=== PATIENT | female | born 1955 | race Asian ===

== ENCOUNTER 2019-10-13 22:56 | Inpatient (IN) | payer BC, MEDICARE ==
[2019-10-13] MEDS ORDERED: ASPIRIN 81 MG TABLET, CHEWABLE PO ONE (23:19)
--- NOTE | 2019-10-13 23:20 | ER Document Report ---
ED Medical Screen (RME) - General Chief Complaint: Chest Pain Stated Complaint: CHEST PAIN/SHORTNESS OF BREATH Time Seen by Provider: 10/13/19 23:16 Primary Care Provider: YIN MENDENHALL [Primary Care Provider] - Follow up as needed Information source: Patient Notes: Patient presents with chest pain for the past week with exertional dyspnea. Patient states she has had some cyanosis to the lips. Exertional activities. Patient reports mild cough. Patient denies any chronic underlying medical problems. I have greeted and performed a rapid initial assessment of this patient. A comprehensive ED assessment and evaluation of the patient, analysis of test results and completion of the medical decision making process will be conducted by additional ED providers. - Related Data Allergies/Adverse Reactions: No Known Allergies Allergy (Unverified 10/13/19 23:15) Physical Exam - Vital signs Vitals: Temp Pulse Resp BP Pulse Ox 97.7 F 93 20 116/93 H 99 10/13/19 23:12 10/13/19 23:12 10/13/19 23:12 10/13/19 23:12 10/13/19 23:12 - Respiratory Respiratory status: No respiratory distress Chest status: Tender Breath sounds: Nonproductive cough - Cardiovascular Rhythm: Regular Heart sounds: S1 appreciated, S2 appreciated Course - Vital Signs Vital signs: Temp Pulse Resp BP Pulse Ox 97.7 F 93 20 116/93 H 99 10/13/19 23:12 10/13/19 23:12 10/13/19 23:12 10/13/19 23:12 10/13/19 23:12 Doctor's Discharge - Discharge Referrals: YIN MENDENHALL [Primary Care Provider] - Follow up as needed
[2019-10-14 00:02] LABS: ABSOLUTE BASOPHILS # (AUTO) 0.1 10^3/uL (0.0-0.2); ABSOLUTE EOSINOPHILS # (AUTO) 0.1 10^3/uL (0.0-0.6); ABSOLUTE LYMPHOCYTES (AUTO) 2.3 10^3/uL (0.5-4.7); ABSOLUTE MONOCYTES (AUTO) 0.8 10^3/uL (0.1-1.4); ABSOLUTE NEUT (AUTO) 5.6 10^3/uL (1.7-8.2); BASOPHILS % (AUTO) 1.1 % (0-2); EOSINOPHILS % (AUTO) 1.1 % (0-6); HEMATOCRIT 38.5 % (36.0-47.0); HEMOGLOBIN 12.9 g/dL (12.0-15.5); LYMPHOCYTES % (AUTO) 26.3 % (13-45); MEAN CORPUSCULAR HGB CONC 33.4 g/dL (32.0-36.0); MEAN CORPUSCULAR VOLUME 93 fl (80-97); MONOCYTES % (AUTO) 8.6 % (3-13); PLATELET COUNT 230 10^3/uL (150-450); RED BLOOD COUNT 4.14 10^6/uL (3.72-5.28); RED CELL DISTRIBUTION WIDTH 13.1 % (11.5-14.0); SEGMENTED NEUTROPHILS % (AUTO) 62.9 % (42-78); TOTAL CELLS COUNTED % (AUTO) 100 %; WHITE BLOOD COUNT 8.8 10^3/uL (4.0-10.5)
[2019-10-14 00:23] LABS: ALKALINE PHOSPHATASE 66 U/L (38-126); ANION GAP 8 (5-19); ASPARTATE AMINO TRANSFERASE 96 U/L (14-36); BILIRUBIN,TOTAL 1.3 mg/dL (0.2-1.3); BLOOD UREA NITROGEN 14 mg/dL (7-20); CALCIUM 9.8 mg/dL (8.4-10.2); CARBON DIOXIDE 27 mmol/L (22-30); CHLORIDE 99 mmol/L (98-107); GLUCOSE 205 mg/dL (75-110); POTASSIUM 4.2 mmol/L (3.6-5.0); TOTAL PROTEIN 7.3 g/dL (6.3-8.2)
--- NOTE | 2019-10-14 00:33 | RADIOLOGY REPORT (SQ) ---
EXAM DESCRIPTION: XR CHEST 2 VIEWS COMPLETED DATE/TME: 10/13/2019 23:19 CLINICAL HISTORY: 64 years Female, cp COMPARISON: None. NUMBER OF VIEWS/TECHNIQUE: 2, PA/Lateral FINDINGS: Moderate opacity-fusion at bilateral lung bases. Moderate lung volume, normal cardiac silhouette, and intact bony thorax. Atherosclerosis. IMPRESSION: Moderate bibasilar pneumonia/atelectasis. [id number] bilateral pleural effusions. Recommend CR/CT surveillance including at 7-12 weeks following initiation of any clinically warranted therapy.
[2019-10-14 00:38] LABS: TROPONIN I 0.091 ng/mL
[2019-10-14] MEDS ORDERED: FUROSEMIDE INJ/PF 40 MG/4 ML SDV IV ONE (02:32)
--- NOTE | 2019-10-14 03:21 | ER Document Report ---
ED General - General Chief Complaint: Shortness Of Breath Stated Complaint: CHEST PAIN/SHORTNESS OF BREATH Time Seen by Provider: 10/13/19 23:16 Primary Care Provider: YIN MENDENHALL [NO LOCAL MD] - Follow up as needed Notes: 64-year-old female presents emergency department complaining of shortness of breath for the past week that worsened today associated with increasing dyspnea on exertion and decreased exercise tolerance. Denies any true chest pain although states that she feels "something" in her chest sometimes when she is walking. Admits to nonproductive cough that is been going on for the past week. Denies any peripheral edema but admits orthopnea that means she has been having to sleep in a recliner for the past week. Does not see a doctor on a regular basis, denies prior medical history. - Related Data Allergies/Adverse Reactions: No Known Allergies Allergy (Unverified 10/13/19 23:15) Past Medical History - General Information source: Patient - Social History Smoking Status: Never Smoker Frequency of alcohol use: None Drug Abuse: None Family History: Hypertension Patient has homicidal ideation: No Past Surgical History: Reports: Hx Tubal Ligation Review of Systems - Review of Systems Constitutional: No symptoms reported EENT: No symptoms reported Cardiovascular: See HPI Respiratory: See HPI Gastrointestinal: No symptoms reported -: Yes All other systems reviewed and negative Physical Exam - Vital signs Vitals: Temp Pulse Resp BP Pulse Ox 97.7 F 93 20 116/93 H 99 10/13/19 23:12 10/13/19 23:12 10/13/19 23:12 10/13/19 23:12 10/13/19 23:12 Interpretation: Normal - Notes Notes: GENERAL: Alert, interacts well. Appears mildly short of breath. HEAD: Normocephalic, atraumatic EYES: Pupils equal, round and reactive to light, extraocular movements intact. ENT: Oral mucosa moist, tongue midline. NECK: Full range of motion, supple, trachea midline. LUNGS: Mildly tachypneic when speaking, inspiratory rales at the bases, no wheezing, no accessory muscle use. HEART: Regular rate and rhythm, no murmurs, gallops, rubs. ABDOMEN: Soft, nontender, nondistended, bowel sounds present in all 4 quadrants. EXTREMITIES: Moves all 4 extremities spontaneously, trace pitting edema, radial and dorsalis pedis pulses 2/4 bilaterally. No cyanosis. NEUROLOGICAL: Alert and oriented x3, normal speech. PSYCH: Normal mood, normal affect. SKIN: Warm, Dry, normal turgor, no rashes or lesions noted. Course - Re-evaluation Re-evalutation: 10/14/19 03:19 CBC unremarkable, CMP shows elevated glucose at 205, low sodium at 133.8, AST and ALT are both moderately elevated, troponin indeterminate 0.091, repeat has been ordered, proBNP elevated at 6280. Chest X-Ray 10/13/19 23:19 IMPRESSION: Moderate bibasilar pneumonia/atelectasis. [id number] bilateral pleural effusions. Recommend CR/CT surveillance including at 7-12 weeks following initiation of any clinically warranted therapy. Chest x-ray though not noted by radiology does appear to show some cephalization to me. No evidence of pneumonia, doubt bibasilar pneumonia, more likely atelectasis. Patient is given aspirin and Lasix. Discussed patient with Dr. Hunt for new onset CHF admission. He will come down and examine the patient and determine final level of care for this patient. 10/14/19 03:27 Patient is actually - Vital Signs Vital signs: Temp Pulse Resp BP Pulse Ox 97.7 F 93 24 H 115/87 H 100 10/13/19 23:12 10/13/19 23:12 10/14/19 03:15 10/14/19 03:15 10/14/19 03:15 - Laboratory Result Diagrams: 10/13/19 23:45 10/13/19 23:45 Laboratory results interpreted by me: 10/13/19 10/13/19 23:45 23:45 Sodium 133.8 L Glucose 205 H AST 96 H ALT 145 H NT-Pro-B Natriuret Pep 6280 H - EKG Interpretation by Me Additional EKG results interpreted by me: 10/14/19 03:20 EKG shows sinus rhythm at a rate of 95, normal axis, interventricular conduction delay, no ST segment elevations, slight ST segment depressions in lead II and V4 through V6, T wave inversions noted in V4 through V6, per my interpretation. Discharge - Discharge Clinical Impression: New onset of congestive heart failure, Hyperglycemia Condition: Fair Disposition: ADMITTED INPATIENT Admitting Provider: Gilbert (Hospitalist) Unit Admitted: Telemetry Referrals: LOCAL,NO [NO LOCAL MD] - Follow up as needed
--- NOTE | 2019-10-14 03:40 | PDOC H&P ---
History of Present Illness Admission Date/PCP: NO LOCALMN History of Present Illness: DANA JACKSON is a 64 year old female with no known prior medical history who presents with shortness of breath. She complains of dyspnea on exertion for 1 week and orthopnea for 2 weeks. She said she has had 2 sleep propped up and she has since moved into sleeping in a chair. She is not had any fevers. She said that she has to take several rest breaks when doing any sort of activity now and she feels like it has gotten worse. She says she feels like her heart starts beating harder and faster whenever she does any kind of activity and it slows back down whenever she rests. She is not a smoker. She does not have a doctor and has not seen a doctor in several years. She does not take any medications at home. She is never had a stress test. She said that her father had hypertension, her mother had coronary artery disease and diabetes, and her brother has diabetes, and 1 of her children has hypertension. She was not hypoxic but she felt like she was breathing a little bit easier with the oxygen on. Her chest x-ray showed small bilateral pleural effusions, bibasilar opacities, and some pulmonary vascular congestion on my read. Past Surgical History Past Surgical History: Reports: Tubal Ligation Social History Smoking Status: Never Smoker Family History Family History: CAD, DM, Hypertension Parental Family History Reviewed: Yes Children Family History Reviewed: Yes Sibling(s) Family History Reviewed.: Yes Medication/Allergy Allergies/Adverse Reactions: No Known Allergies Allergy (Unverified 10/13/19 23:15) Review of Systems All systems: reviewed and no additional remarkable complaints except as stated - All systems were reviewed and were negative except as noted in the HPI Physical Exam Vital Signs: Temp Pulse Resp BP Pulse Ox 97.7 F 93 24 H 115/87 H 100 10/13/19 23:12 10/13/19 23:12 10/14/19 03:15 10/14/19 03:15 10/14/19 03:15 Intake & Output 10/12/19 10/13/19 10/14/19 06:59 06:59 06:59 Weight 62.2 kg General appearance: PRESENT: no acute distress, cooperative Head exam: PRESENT: atraumatic, normocephalic Eye exam: PRESENT: EOMI, PERRLA. ABSENT: conjunctival injection, nystagmus, scleral icterus Ear exam: PRESENT: normal external ear exam Mouth exam: PRESENT: moist, neck supple Throat exam: ABSENT: post pharyngeal erythema Neck exam: PRESENT: full ROM, JVD. ABSENT: carotid bruit, lymphadenopathy, meningismus, tenderness, thyromegaly Respiratory exam: PRESENT: crackles - Bibasilar, symmetrical, tachypnea, unlabored. ABSENT: accessory muscle use, chest wall tenderness, clear to auscultation skylar, prolonged expiratory phas, rhonchi, wheezes Cardiovascular exam: PRESENT: RRR, +S1, +S2 Pulses: PRESENT: normal carotid pulses Vascular exam: PRESENT: normal capillary refill GI/Abdominal exam: PRESENT: normal bowel sounds, soft. ABSENT: distended, guarding, rebound, tenderness Extremities exam: PRESENT: other - Trace ankle and pretibial edema bilaterally. ABSENT: clubbing, pedal edema Musculoskeletal exam: PRESENT: normal inspection. ABSENT: deformity Neurological exam: PRESENT: alert, awake, oriented to person, oriented to place, oriented to time, oriented to situation, CN II-XII grossly intact. ABSENT: motor sensory deficit Psychiatric exam: PRESENT: appropriate affect, normal mood Skin exam: PRESENT: dry, warm Results Laboratory Results: 10/13/19 23:45 10/13/19 23:45 10/13/19 10/13/19 23:45 23:45 WBC 8.8 RBC 4.14 Hgb 12.9 Hct 38.5 MCV 93 MCH 31.0 MCHC 33.4 RDW 13.1 Plt Count 230 Seg Neutrophils % 62.9 Sodium 133.8 L Potassium 4.2 Chloride 99 Carbon Dioxide 27 Anion Gap 8 BUN 14 Creatinine 0.73 Est GFR ( Amer) > 60 Glucose 205 H Calcium 9.8 Magnesium 1.6 Total Bilirubin 1.3 AST 96 H Alkaline Phosphatase 66 Total Protein 7.3 Albumin 4.0 10/13/19 23:45 Troponin I 0.091 NT-Pro-B Natriuret Pep 6280 H Impressions: Chest X-Ray 10/13/19 23:19 IMPRESSION: Moderate bibasilar pneumonia/atelectasis. [id number] bilateral pleural effusions. Recommend CR/CT surveillance including at 7-12 weeks following initiation of any clinically warranted therapy. Assessment and Plan - Diagnosis (1) New onset of congestive heart failure Is this a current diagnosis for this admission?: Yes Plan: This is the chief suspicion based on the available data. She is afebrile, has orthopnea, dyspnea on exertion, bilateral small pleural effusions, bilateral bibasilar opacities, and what appears to be pulmonary vascular congestion. Her BNP is elevated, and she had an equivocal troponin. There is no suspicion of an infectious disease process at this time. She received 1 dose of Lasix in the ER. We will give her IV Lasix twice a day. Of ordered an echocardiogram. Based on the results, cardiology consultation may be required. She would also benefit from a cardiac stress test at some point, be it during this hospitalization or set up as an outpatient. We will trend her troponins. We will keep her on telemetry. I have started an aspirin and a statin. (2) Elevated troponin Is this a current diagnosis for this admission?: Yes Plan: Trending troponins as previously noted (3) Transaminitis Is this a current diagnosis for this admission?: Yes Plan: This could be passive congestion from the liver. If her suspected CHF responds to diuresis, her transaminases should improve if it is passive congestion of the liver. (4) Hyperglycemia Is this a current diagnosis for this admission?: Yes Plan: We will check a hemoglobin A1c. - Time Time Spent with patient: 35 or more minutes - Inpatient Certification Based on my medical assessment, after consideration of the patient's comorbidities, presenting symptoms, or acuity I expect that the services needed warrant INPATIENT care.: Yes I certify that my determination is in accordance with my understanding of Medicare's requirements for reasonable and necessary INPATIENT services [42 CFR 412.3e].: Yes Medical Necessity: Need Close Monitoring Due to Risk of Patient Decompensation, Need For Continuous Telemetry Monitoring, Risk of Complication if Not Cared For in Hospital
[2019-10-14] MEDS: ATORVASTATIN CALCIUM 40 MG TABLET PO SCH ×2 (06:07→21:27)
[2019-10-14] MEDS: HEPARIN SOD (PORCINE) 5,000 UNIT/ML 1 ML VIAL SUBCUT SCH ×3 (06:07→21:27)
[2019-10-14] MEDS: ASPIRIN 81 MG TABLET, ENT COATED PO SCH (09:56)
[2019-10-14] MEDS: METOPROLOL SUCCINATE 25 MG TAB.SR.24H PO SCH (09:57)
[2019-10-14] MEDS ORDERED: ASPIRIN 325 MG TABLET PO SCH ×2 (10:00)
[2019-10-14] MEDS: FUROSEMIDE INJ/PF 20 MG/2 ML SDV IV SCH ×2 (10:01→21:27)
[2019-10-14 10:40] LABS: CHOLESTEROL 213.75 mg/dL (0-200); TRIGLYCERIDES 147 mg/dL (<150)
[2019-10-14 10:52] LABS: DIRECT LDL 130 mg/dL (<100)
--- NOTE | 2019-10-14 13:12 | EKG REPORT ---
SEVERITY:- ABNORMAL ECG - SINUS RHYTHM INCOMPLETE LEFT BUNDLE BRANCH BLOCK ST DEPRESSION, CONSIDER ISCHEMIA, LAT LEADS : Confirmed by: Efra Ruiz MD 14-Oct-2019 13:11:39
--- NOTE | 2019-10-14 13:33 | Progress Note ---
Provider Note Provider Note: Patient seen and evaluated by me. She has not been to the doctor in about 20 years. But symptoms of shortness of breath, orthopnea and PND believe to be new for patient. Denies any known history of high blood pressure or diabetes. On fluid restriction. Check lipid panel. Awaiting echo. Consult to cardiology. Monitor on telemetry. Continue plan as per admitting provider.
--- NOTE | 2019-10-14 13:44 | PDOC CONSULTATION ---
Consultation Consult Date: 10/14/19 Attending physician:: TUAN COLUNGA Provider Consulted: RUBIA COUCH Consult reason:: Congestive heart failure History of Present Illness Admission Date/PCP: 10/14/19 03:38 Patient complains of: Dyspnea, orthopnea History of Present Illness: DANA JACKSON is a 64 year old female With no prior medical history presents with complaint suggestive of congestive heart failure. Symptoms include dyspnea, exertional intolerance, orthopnea as well as PND. Symptoms are completely new as of the last week or so. No prior mention of cardiac disease. No history of coronary artery disease hypertension or dyslipidemia No familial illnesses reported Patient does not smoke cigarettes use alcohol or drugs. She has her own cleaning business. No major surgeries reported. Past Medical History Psychiatric Medical History: Denies: Depression Past Surgical History Past Surgical History: Reports: Tubal Ligation Social History Smoking Status: Never Smoker Electronic Cigarette use?: No Frequency of Alcohol Use: None Hx Recreational Drug Use: No Hx Prescription Drug Abuse: No Family History Family History: CAD, DM, Hypertension Parental Family History Reviewed: Yes - No familial illnesses Children Family History Reviewed: NA Sibling(s) Family History Reviewed.: NA Medication/Allergy Home Medications: Ascorbic Acid [Vitamin C 500 mg Tablet] 500 mg PO DAILY 10/14/19 Aspirin [Ecotrin 81 mg EC Tablet] 81 mg PO DAILY 10/14/19 Multivitamin [Tab-A-Cecilio (Multiple Vitamin) Tablet] 1 tab PO DAILY 10/14/19 Allergies/Adverse Reactions: No Known Allergies Allergy (Unverified 10/13/19 23:15) Review of Systems Constitutional: PRESENT: as per HPI Nose, Mouth, and Throat: PRESENT: as per HPI Cardiovascular: PRESENT: dyspnea on exertion, orthropnea Physical Exam Vital Signs: Temp Pulse Resp BP Pulse Ox 97.6 F 84 18 107/67 100 10/14/19 08:49 10/14/19 09:15 10/14/19 08:49 10/14/19 08:49 10/14/19 08:49 Intake & Output 10/13/19 10/14/19 10/15/19 06:59 06:59 06:59 Weight 62.2 kg General appearance: PRESENT: no acute distress, cooperative, well-developed, well-nourished Head exam: PRESENT: atraumatic, normocephalic Eye exam: PRESENT: conjunctiva pink, EOMI Respiratory exam: PRESENT: symmetrical, unlabored Cardiovascular exam: PRESENT: RRR, +S1, +S2 Pulses: PRESENT: normal radial pulses GI/Abdominal exam: PRESENT: soft Rectal exam: PRESENT: deferred Musculoskeletal exam: PRESENT: normal inspection Neurological exam: PRESENT: alert, awake, oriented to person, oriented to place, oriented to time, oriented to situation Psychiatric exam: PRESENT: appropriate affect Skin exam: PRESENT: dry, intact, normal color Results Laboratory Results: 10/13/19 23:45 10/13/19 23:45 10/13/19 10/13/19 10/14/19 23:45 23:45 09:53 WBC 8.8 RBC 4.14 Hgb 12.9 Hct 38.5 MCV 93 MCH 31.0 MCHC 33.4 RDW 13.1 Plt Count 230 Seg Neutrophils % 62.9 Sodium 133.8 L Potassium 4.2 Chloride 99 Carbon Dioxide 27 Anion Gap 8 BUN 14 Creatinine 0.73 Est GFR ( Amer) > 60 Glucose 205 H Calcium 9.8 Magnesium 1.6 Total Bilirubin 1.3 AST 96 H Alkaline Phosphatase 66 Total Protein 7.3 Albumin 4.0 Triglycerides 147 Cholesterol 213.75 H LDL Cholesterol Direct 130 H VLDL Cholesterol 29.0 HDL Cholesterol 41 10/13/19 10/14/19 10/14/19 23:45 02:10 09:53 Troponin I 0.091 0.079 0.089 NT-Pro-B Natriuret Pep 6280 H EKG Comments: Twelve-lead EKG. 02/13/2020 Independently reviewed by me. Sinus rhythm, 95 bpm, partial left bundle branch block, QTC is 458 ms Chest x-ray 10/13/2019 Moderate bibasilar pneumonia/atelectasis small to moderate pleural effusions Troponin 0.091 0.079 0.089 BNP 6280 Impressions: Chest X-Ray 10/13/19 23:19 IMPRESSION: Moderate bibasilar pneumonia/atelectasis. [id number]-[id number] bilateral pleural effusions. Recommend CR/CT surveillance including at 7-12 weeks following initiation of any clinically warranted therapy. Twelve-lead EKG. 02/13/2020 Independently reviewed by me. Sinus rhythm, 95 bpm, partial left bundle branch block, QTC is 458 ms Chest x-ray 10/13/2019 Moderate bibasilar pneumonia/atelectasis small to moderate pleural effusions Troponin 0.091 0.079 0.089 BNP 6280 Assessment & Plan - Diagnosis (1) New onset of congestive heart failure Is this a current diagnosis for this admission?: Yes Plan: Symptoms suggestive of new onset congestive heart failure We will evaluate echocardiogram For the present time continue diuresis Fluid restriction to 1 to 1.5 L/day No added salt in the diet Further recommendations based on echocardiogram results (2) Elevated troponin Is this a current diagnosis for this admission?: Yes Plan: Mildly elevated but indeterminate troponin. EKG nondiagnostic for myocardial ischemia Elevated troponins likely on account of congestive heart failure.
[2019-10-15] MEDS: HEPARIN SOD (PORCINE) 5,000 UNIT/ML 1 ML VIAL SUBCUT SCH ×3 (05:13→22:10)
[2019-10-15 06:46] LABS: HEMOGLOBIN 13.1 g/dL (12.0-15.5); MEAN CORPUSCULAR HEMOGLOBIN 30.9 pg (27.0-33.4); MEAN CORPUSCULAR HGB CONC 33.5 g/dL (32.0-36.0); MEAN CORPUSCULAR VOLUME 92 fl (80-97); PLATELET COUNT 199 10^3/uL (150-450); RED BLOOD COUNT 4.23 10^6/uL (3.72-5.28); RED CELL DISTRIBUTION WIDTH 13.3 % (11.5-14.0); WHITE BLOOD COUNT 7.9 10^3/uL (4.0-10.5)
[2019-10-15 07:07] LABS: ALBUMIN 3.6 g/dL (3.5-5.0); ALKALINE PHOSPHATASE 69 U/L (38-126); ANION GAP 6 (5-19); ASPARTATE AMINO TRANSFERASE 64 U/L (14-36); BILIRUBIN,TOTAL 1.7 mg/dL (0.2-1.3); BLOOD UREA NITROGEN 20 mg/dL (7-20); CALCIUM 9.6 mg/dL (8.4-10.2); CARBON DIOXIDE 32 mmol/L (22-30); CHLORIDE 99 mmol/L (98-107); GLUCOSE 179 mg/dL (75-110); POTASSIUM 3.7 mmol/L (3.6-5.0); TOTAL PROTEIN 6.8 g/dL (6.3-8.2)
[2019-10-15] MEDS: METOPROLOL SUCCINATE 25 MG TAB.SR.24H PO SCH (10:24)
[2019-10-15] MEDS: ASPIRIN 81 MG TABLET, ENT COATED PO SCH (10:24)
[2019-10-15] MEDS: ASCORBIC ACID 500 MG TABLET PO SCH (10:24)
[2019-10-15] MEDS: MULTIVITAMIN TABLET PO SCH (10:24)
[2019-10-15] MEDS: FUROSEMIDE INJ/PF 20 MG/2 ML SDV IV SCH ×2 (10:25→17:06)
--- NOTE | 2019-10-15 13:11 | XCELERA REPORT ---
[address] [address] Transthoracic Echocardiogram Report Name: DANA JACKSON Age: 64 yrs Gender: Female : 1955 Patient Status: Inpatient Patient Location: [address] [place], [place] [id number] Study Date: 10/14/2019 10:13 AM History: CHF Height: 63 in Weight: 137 lb BSA: 1.6 m2 Procedure: A complete two-dimensional transthoracic echocardiogram was performed (2D, M-mode, spectral and color flow Doppler). The study was technically adequate with some images being suboptimal in quality. Reason For Study: chf Previous Evaluation: No previous studies were available. History: Shortness of breath. Ordering Physician: HELGA VENTURA Performed By: Rosalba Kuhn Interpretation Summary Left ventricular systolic function is severely reduced. The Ejection Fraction estimate is 20-25% The right ventricular systolic function is moderately reduced. There is a mild amount of mitral regurgitation There is no aortic valve stenosis There is a trace amount of aortic regurgitation Minimal pericardial effusion. Moderate size left pleural effusion. MMode/2D Measurements & Calculations RVDd: 2.1 cm LVIDd: 5.6 cm FS: 8.2 % Ao root diam: 2.6 cm IVSd: 0.99 cm LVIDs: 5.1 cm EDV(Teich): 151.9 ml Ao root area: 5.2 cm2 LVPWd: 0.99 cm ESV(Teich): 124.5 ml LA dimension: 3.3 cm EF(Teich): 18.0 % LVOT diam: 2.2 cm LVOT area: 3.8 cm2 Doppler Measurements & Calculations MV E max ankur: MV P1/2t max ankur: Ao V2 max: LV V1 max P.9 cm/sec 96.1 cm/sec 112.9 cm/sec 4.1 mmHg MV A max ankur: MV P1/2t: 44.6 msec Ao max P.1 mmHg LV V1 max: 54.0 cm/sec MVA(P1/2t): 4.9 cm2 SINDY(V,D): 3.4 cm2 101.0 cm/sec MV E/A: 1.8 MV dec slope: 631.1 cm/sec2 MV dec time: 0.14 sec PA V2 max: PI end-d ankur: MV P1/2t-pr_phl: 51.8 cm/sec 131.9 cm/sec 44.6 msec PA max P.1 mmHg Left Ventricle The left ventricle is moderately dilated. There is mild concentric left ventricular hypertrophy. Left ventricular systolic function is severely reduced. The Ejection Fraction estimate is 20-25%. Doppler measurements suggest reversible restrictive left ventricular relaxation, which is associated with grade III/IV or moderate diastolic dysfunction. There is severe global hypokinesis of the left ventricle. Right Ventricle The right ventricle is mild to moderately dilated. The right ventricular systolic function is moderately reduced. Atria The right atrium is normal. The left atrium is mildly dilated. The interatrial septum is intact with no evidence for an atrial septal defect. There is no Doppler evidence for an interatrial shunt. Mitral Valve The mitral valve is grossly normal. There is a mild amount of mitral regurgitation. Aortic Valve The aortic valve is not well visualized secondary to technical limitations. The aortic valve opens well. The aortic valve is sclerotic, but shows no functional abnormality. There is no aortic valve stenosis. There is a trace amount of aortic regurgitation. Tricuspid Valve The tricuspid valve is normal in structure and function. No tricuspid regurgitation. Pulmonic Valve The pulmonic valve is not well visualized. There is a mild amount of pulmonic regurgitation. Great Vessels The aortic root is normal size. The inferior vena cava appeared normal and decreased > 50% with respiration (RAP 5-10 mmHg). Effusions Minimal pericardial effusion. Moderate size left pleural effusion. : HELGA VENTURA Anil
--- NOTE | 2019-10-15 14:46 | PDOC PROGRESS REPORT ---
Subjective Progress Note for:: 10/15/19 Subjective:: Patient states that her breathing is better but she still dyspneic on exertion. Denies any chest pain fever or chills. Reason For Visit: ACUTE CONGESTIVE HEART FAILURE Physical Exam Vital Signs: Temp Pulse Resp BP Pulse Ox 98.2 F 76 18 116/80 100 10/15/19 11:15 10/15/19 11:15 10/15/19 11:15 10/15/19 11:15 10/15/19 11:15 Intake & Output 10/14/19 10/15/19 10/16/19 06:59 06:59 06:59 Intake Total 760 Output Total 100 Balance 660 Weight 62.2 kg 60.3 kg General appearance: PRESENT: no acute distress, cooperative Neck exam: ABSENT: JVD Respiratory exam: PRESENT: crackles, symmetrical, unlabored. ABSENT: tachypnea, wheezes Cardiovascular exam: PRESENT: RRR, +S1, +S2. ABSENT: tachycardia GI/Abdominal exam: PRESENT: soft. ABSENT: rebound, rigid, tenderness Neurological exam: PRESENT: alert, awake, oriented to person, oriented to place, oriented to time, oriented to situation Results Laboratory Results: 10/15/19 06:02 10/15/19 06:02 10/15/19 10/15/19 06:02 06:02 WBC 7.9 RBC 4.23 Hgb 13.1 Hct 39.0 MCV 92 MCH 30.9 MCHC 33.5 RDW 13.3 Plt Count 199 Sodium 137.1 Potassium 3.7 Chloride 99 Carbon Dioxide 32 H Anion Gap 6 BUN 20 Creatinine 0.90 Est GFR ( Amer) > 60 Glucose 179 H Calcium 9.6 Magnesium 1.7 Total Bilirubin 1.7 H AST 64 H Alkaline Phosphatase 69 Total Protein 6.8 Albumin 3.6 10/13/19 10/14/19 10/14/19 23:45 02:10 09:53 Troponin I 0.091 0.079 0.089 NT-Pro-B Natriuret Pep 6280 H 10/14/19 10/15/19 14:00 06:02 Troponin I 0.075 NT-Pro-B Natriuret Pep 4560 H Impressions: Chest X-Ray 10/13/19 23:19 IMPRESSION: Moderate bibasilar pneumonia/atelectasis. [id number] bilateral pleural effusions. Recommend CR/CT surveillance including at 7-12 weeks following initiation of any clinically warranted therapy. Assessment and Plan - Diagnosis (1) New onset of congestive heart failure Is this a current diagnosis for this admission?: Yes Plan: New onset systolic CHF. Echo today shows EF of 20 to 25%. Cardiology is on board and following. Recommendations appreciated. We will start patient on Entresto, Toprol-XL. Continue IV Lasix. Plan to switch to p.o. Lasix tomorrow. Dr. Ruiz is working on obtaining patient on LifeVest. Left heart cath will be planned by cardiology for outpatient for evaluation for ischemic disease. Patient is saturating adequately on room air. We will monitor strict I's and O's. Keep on telemetry. (2) Diabetes mellitus, new onset Is this a current diagnosis for this admission?: Yes Plan: Hemoglobin A1c of 8.1 with random blood sugar reading of 205. New onset diabetes likely type II. We will still check BHARAT 65. nutrition helper and dietitian consulted. Start patient on metformin. Accu- Cheks. Sliding scale insulin (3) Hyperlipidemia Is this a current diagnosis for this admission?: Yes Plan: ASCVD 10-year risk calculated to be 9.4%. Will start patient on atorvastatin. (4) Elevated troponin Is this a current diagnosis for this admission?: Yes Plan: Secondary to CHF. No evidence of ACS at this time. - Time Time Spent with patient: Less than 15 minutes
[2019-10-15] MEDS ORDERED: DEXTROSE 50%-WATER 25 GM/50 ML DISP.SYRIN IV PRN ×2 (14:48)
[2019-10-15] MEDS ORDERED: DEXTROSE 40% GEL 15 GM TUBE PO PRN ×2 (14:48)
[2019-10-15] MEDS ORDERED: GLUCAGON,HUMAN RECOMB 1 MG INJ IM PRN (14:48)
[2019-10-15] MEDS: METFORMIN HCL 500 MG TABLET PO SCH (16:37)
[2019-10-15] MEDS: SACUBITRIL/VALSARTAN 24 MG/26 MG TABLET PO SCH ×2 (16:37→22:09)
[2019-10-15] MEDS: INSULIN LISPRO 100 UNIT/ML 3 ML VIAL SUBCUT SCH ×2 (16:50→22:06)
--- NOTE | 2019-10-15 18:02 | PDOC PROGRESS REPORT ---
Subjective Progress Note for:: 10/15/19 Subjective:: Patient seen and examined. Feels better. Dyspnea and PND have improved. No chest pain Reason For Visit: ACUTE CONGESTIVE HEART FAILURE Physical Exam Vital Signs: Temp Pulse Resp BP Pulse Ox 97.6 F 88 16 116/84 99 10/15/19 15:07 10/15/19 15:07 10/15/19 15:07 10/15/19 15:07 10/15/19 15:07 Intake & Output 10/14/19 10/15/19 10/16/19 06:59 06:59 06:59 Intake Total 760 Output Total 100 Balance 660 Weight 62.2 kg 60.3 kg General appearance: PRESENT: no acute distress, cooperative, well-developed, wel l-nourished Head exam: PRESENT: atraumatic, normocephalic Eye exam: PRESENT: conjunctiva pink Mouth exam: PRESENT: moist Respiratory exam: PRESENT: symmetrical, unlabored Cardiovascular exam: PRESENT: RRR, +S1, +S2, systolic murmur Pulses: PRESENT: normal radial pulses GI/Abdominal exam: PRESENT: soft Rectal exam: PRESENT: deferred Neurological exam: PRESENT: alert, awake, oriented to person, oriented to place, oriented to time, oriented to situation Skin exam: PRESENT: dry, intact, normal color Results Laboratory Results: 10/15/19 06:02 10/15/19 06:02 10/15/19 10/15/19 06:02 06:02 WBC 7.9 RBC 4.23 Hgb 13.1 Hct 39.0 MCV 92 MCH 30.9 MCHC 33.5 RDW 13.3 Plt Count 199 Sodium 137.1 Potassium 3.7 Chloride 99 Carbon Dioxide 32 H Anion Gap 6 BUN 20 Creatinine 0.90 Est GFR ( Amer) > 60 Glucose 179 H Calcium 9.6 Magnesium 1.7 Total Bilirubin 1.7 H AST 64 H Alkaline Phosphatase 69 Total Protein 6.8 Albumin 3.6 10/13/19 10/14/19 10/14/19 23:45 02:10 09:53 Troponin I 0.091 0.079 0.089 NT-Pro-B Natriuret Pep 6280 H 10/14/19 10/15/19 14:00 06:02 Troponin I 0.075 NT-Pro-B Natriuret Pep 4560 H EKG Comments: ECHO LVEF 20-25%. Impressions: Chest X-Ray 10/13/19 23:19 IMPRESSION: Moderate bibasilar pneumonia/atelectasis. [id number] bilateral pleural effusions. Recommend CR/CT surveillance including at 7-12 weeks following initiation of any clinically warranted therapy. Assessment & Plan - Diagnosis (1) New onset of congestive heart failure Is this a current diagnosis for this admission?: Yes Plan: Dilated CMP Will need cardiac cath to exclude CAD as etiology. Will be arranged as out patient. Start Valsartan/Sacubutril Start Metoprolol -uptitrate as tolerated Continue IV diuresis. (2) Elevated troponin Is this a current diagnosis for this admission?: Yes Plan: Probably due to CHF (3) Dilated cardiomyopathy Is this a current diagnosis for this admission?: Yes Plan: Dilated CMP LVEF 20-25% Will arrange for wearable defibrillator
[2019-10-15] MEDS: ATORVASTATIN CALCIUM 40 MG TABLET PO SCH (22:09)
[2019-10-16] MEDS: HEPARIN SOD (PORCINE) 5,000 UNIT/ML 1 ML VIAL SUBCUT SCH ×3 (05:11→15:29)
[2019-10-16 06:08] LABS: HEMATOCRIT 44.6 % (36.0-47.0); MEAN CORPUSCULAR HEMOGLOBIN 30.9 pg (27.0-33.4); MEAN CORPUSCULAR HGB CONC 33.6 g/dL (32.0-36.0); MEAN CORPUSCULAR VOLUME 92 fl (80-97); PLATELET COUNT 213 10^3/uL (150-450); RED BLOOD COUNT 4.85 10^6/uL (3.72-5.28); RED CELL DISTRIBUTION WIDTH 13.5 % (11.5-14.0); WHITE BLOOD COUNT 8.1 10^3/uL (4.0-10.5)
[2019-10-16 06:28] LABS: ALBUMIN 3.9 g/dL (3.5-5.0); ALKALINE PHOSPHATASE 72 U/L (38-126); ANION GAP 6 (5-19); ASPARTATE AMINO TRANSFERASE 46 U/L (14-36); BILIRUBIN,TOTAL 1.5 mg/dL (0.2-1.3); BLOOD UREA NITROGEN 17 mg/dL (7-20); CARBON DIOXIDE 33 mmol/L (22-30); CHLORIDE 98 mmol/L (98-107); GLUCOSE 179 mg/dL (75-110); POTASSIUM 4.1 mmol/L (3.6-5.0); TOTAL PROTEIN 7.4 g/dL (6.3-8.2)
[2019-10-16] MEDS: METFORMIN HCL 500 MG TABLET PO SCH ×2 (07:38→16:39)
[2019-10-16] MEDS: INSULIN LISPRO 100 UNIT/ML 3 ML VIAL SUBCUT SCH ×3 (07:38→16:38)
[2019-10-16] MEDS: MULTIVITAMIN TABLET PO SCH (09:05)
[2019-10-16] MEDS: ASCORBIC ACID 500 MG TABLET PO SCH (09:06)
[2019-10-16] MEDS: METOPROLOL SUCCINATE 25 MG TAB.SR.24H PO SCH (09:06)
[2019-10-16] MEDS: SACUBITRIL/VALSARTAN 24 MG/26 MG TABLET PO SCH (09:06)
[2019-10-16] MEDS: ASPIRIN 81 MG TABLET, ENT COATED PO SCH (09:06)
[2019-10-16] MEDS ORDERED: FUROSEMIDE 40 MG TABLET PO SCH (10:00)
--- NOTE | 2019-10-16 13:03 | PDOC DISCHARGE SUMMARY ---
Impression - Admit/DC Date/PCP Admission Date/Primary Care Provider: 10/14/19 03:38 Discharge Date: 10/16/19 - Discharge Diagnosis (1) New onset of congestive heart failure Is this a current diagnosis for this admission?: Yes (2) Diabetes mellitus, new onset Is this a current diagnosis for this admission?: Yes (3) Hyperlipidemia Is this a current diagnosis for this admission?: Yes (4) Elevated troponin Is this a current diagnosis for this admission?: Yes - Additional Information Discharge Diet: Cardiac, Diabetic Discharge Activity: Activity As Tolerated, Balance Activity w/Rest, Weigh Daily Referrals: RUBIA COUCH MD [ACTIVE STAFF] - 10/21/19 10:00 am (BRING PHOTO ID INSURANCE CARD MEDICATIONS) RAVI SUNSHINE MD [COMMUNITY BASED STAFF] - (LEFT MESSAGE WITH THE PROVIDER FOR FOLLOW UP APPT) Prescriptions: Sacubitril/Valsartan [Entresto 24 mg/26 mg Tablet] 1 tab PO Q12 #60 tablet Metformin HCl [Glucophage 500 mg Tablet] 500 mg PO BIDACBS #60 tablet Furosemide [Lasix 20 mg Tablet] 20 mg PO QAM #30 tablet Atorvastatin Calcium [Lipitor 40 mg Tablet] 40 mg PO QHS #30 tablet Metoprolol Succinate [Toprol Xl 25 mg Tab.sr] 25 mg PO DAILY #30 tab.sr.24h Home Medications: Ascorbic Acid [Vitamin C 500 mg Tablet] 500 mg PO DAILY 10/14/19 Aspirin [Ecotrin 81 mg EC Tablet] 81 mg PO DAILY 10/14/19 Multivitamin [Tab-A-Cecilio (Multiple Vitamin) Tablet] 1 tab PO DAILY 10/14/19 Atorvastatin Calcium [Lipitor 40 mg Tablet] 40 mg PO QHS #30 tablet 10/16/19 Furosemide [Lasix 20 mg Tablet] 20 mg PO QAM #30 tablet 10/16/19 Metformin HCl [Glucophage 500 mg Tablet] 500 mg PO BIDACBS #60 tablet 10/16/19 Metoprolol Succinate [Toprol Xl 25 mg Tab.sr] 25 mg PO DAILY #30 tab.sr.24h 10/16/19 Sacubitril/Valsartan [Entresto 24 mg/26 mg Tablet] 1 tab PO Q12 #60 tablet 10/16/19 History of Present Illiness History of Present Illness: According to admitting provider: DANA JACKSON is a 64 year old female with no known prior medical history who presents with shortness of breath. She complains of dyspnea on exertion for 1 week and orthopnea for 2 weeks. She said she has had 2 sleep propped up and she has since moved into sleeping in a chair. She is not had any fevers. She said that she has to take several rest breaks when doing any sort of activity now and she feels like it has gotten worse. She says she feels like her heart starts beating harder and faster whenever she does any kind of activity and it slows back down whenever she rests. She is not a smoker. She does not have a doctor and has not seen a doctor in several years. She does not take any medications at home. She is never had a stress test. She said that her father had hypertension, her mother had coronary artery disease and diabetes, and her brother has diabetes, and 1 of her children has hypertension. She was not hypoxic but she felt like she was breathing a little bit easier with the oxygen on. Her chest x-ray showed small bilateral pleural effusions, bibasilar opacities, and some pulmonary vascular congestion on my read. Hospital Course Hospital Course: Patient was admitted to the hospital for management of new onset acute congestive heart failure. She has not seen a doctor in over 20 years. Lab work was significant for elevated BNP, chest x-ray revealed pulmonary vascular congestion as well as some pleural effusion. Patient was started on diuresis with IV Lasix and diuresed adequately. Her orthopnea improved. She remained on room air and breathing adequately. She was evaluated by cardiology. Echocardiogram revealed systolic heart failure with ejection fraction of 20 to 25%. Patient evaluated by Dr. Couch who recommended initiation of Entresto. Patient has been established on Entresto, Toprol-XL and Lasix and her blood pressure has been monitored through the night. She has also been set up for a LifeVest which will be delivered to her home right away. Patient has been set up to follow-up with Dr. Couch in the clinic for ischemic evaluation with left heart catheterization given new onset acute systolic heart failure. Patient was also diagnosed with new onset diabetes mellitus. Hemoglobin A1c was high and random blood glucose was over 200. Patient has received diabetes education and she has been discharged on metformin. Prescription given for her to obtain a glucometer, test strips and lancets. Patient has been set up with her primary care provider. Physical Exam Vital Signs: Temp Pulse Resp BP Pulse Ox 97.9 F 75 19 98/57 L 100 10/16/19 11:06 10/16/19 11:06 10/16/19 11:06 10/16/19 11:06 10/16/19 11:06 Intake & Output 10/15/19 10/16/19 10/17/19 06:59 06:59 06:59 Intake Total 760 700 320 Output Total 100 950 500 Balance 660 -250 -180 Weight 60.3 kg 59.6 kg General appearance: PRESENT: no acute distress, cooperative Respiratory exam: PRESENT: symmetrical, unlabored. ABSENT: chest wall tenderness, retraction, tachypnea Musculoskeletal exam: PRESENT: ambulatory Neurological exam: PRESENT: alert, awake, oriented to person, oriented to place, oriented to time, oriented to situation Results Laboratory Results: WBC 8.1 10^3/uL (4.0-10.5) 10/16/19 05:38 RBC 4.85 10^6/uL (3.72-5.28) 10/16/19 05:38 Hgb 15.0 g/dL (12.0-15.5) 10/16/19 05:38 Hct 44.6 % (36.0-47.0) 10/16/19 05:38 MCV 92 fl (80-97) 10/16/19 05:38 MCH 30.9 pg (27.0-33.4) 10/16/19 05:38 MCHC 33.6 g/dL (32.0-36.0) 10/16/19 05:38 RDW 13.5 % (11.5-14.0) 10/16/19 05:38 Plt Count 213 10^3/uL (150-450) 10/16/19 05:38 Lymph % (Auto) 26.3 % (13-45) 10/13/19 23:45 [place] % (Auto) 8.6 % (3-13) 10/13/19 23:45 Eos % (Auto) 1.1 % (0-6) 10/13/19 23:45 Baso % (Auto) 1.1 % (0-2) 10/13/19 23:45 Absolute Neuts (auto) 5.6 10^3/uL (1.7-8.2) 10/13/19 23:45 Absolute Lymphs (auto) 2.3 10^3/uL (0.5-4.7) 10/13/19 23:45 Absolute Monos (auto) 0.8 10^3/uL (0.1-1.4) 10/13/19 23:45 Absolute Eos (auto) 0.1 10^3/uL (0.0-0.6) 10/13/19 23:45 Absolute Basos (auto) 0.1 10^3/uL (0.0-0.2) 10/13/19 23:45 Seg Neutrophils % 62.9 % (42-78) 10/13/19 23:45 Sodium 136.9 mmol/L (137-145) L 10/16/19 05:38 Potassium 4.1 mmol/L (3.6-5.0) 10/16/19 05:38 Chloride 98 mmol/L (98-107) 10/16/19 05:38 Carbon Dioxide 33 mmol/L (22-30) H 10/16/19 05:38 Anion Gap 6 (5-19) 10/16/19 05:38 BUN 17 mg/dL (7-20) 10/16/19 05:38 Creatinine 0.85 mg/dL (0.52-1.25) 10/16/19 05:38 Est GFR ( Amer) > 60 (>60) 10/16/19 05:38 Est GFR (MDRD) Non-Af > 60 (>60) 10/16/19 05:38 Glucose 179 mg/dL (75-110) H 10/16/19 05:38 POC Glucose 162 mg/dL (70-110) H 10/16/19 11:21 Hemoglobin A1c % 8.1 % (4.7-6.0) H 10/15/19 06:02 Calcium 10.0 mg/dL (8.4-10.2) 10/16/19 05:38 Magnesium 1.7 mg/dL (1.6-2.3) 10/15/19 06:02 Total Bilirubin 1.5 mg/dL (0.2-1.3) H 10/16/19 05:38 Direct Bilirubin 0.0 mg/dL (0.0-0.4) 10/16/19 05:38 Neonat Total Bilirubin Not Reportable 10/16/19 05:38 Neonat Direct Bilirubin Not Reportable 10/16/19 05:38 Neonat Indirect Bili Not Reportable 10/16/19 05:38 AST 46 U/L (14-36) H 10/16/19 05:38 ALT 103 U/L (<35) H 10/16/19 05:38 Alkaline Phosphatase 72 U/L (38-126) 10/16/19 05:38 Troponin I 0.075 ng/mL 10/14/19 14:00 NT-Pro-B Natriuret Pep 4560 pg/mL (<125) H 10/15/19 06:02 Total Protein 7.4 g/dL (6.3-8.2) 10/16/19 05:38 Albumin 3.9 g/dL (3.5-5.0) 10/16/19 05:38 Triglycerides 147 mg/dL (<150) 10/14/19 09:53 Cholesterol 213.75 mg/dL (0-200) H 10/14/19 09:53 LDL Cholesterol Direct 130 mg/dL (<100) H 10/14/19 09:53 VLDL Cholesterol 29.0 mg/dL (10-31) 10/14/19 09:53 HDL Cholesterol 41 mg/dL (>40) 10/14/19 09:53 10/13/19 10/14/19 10/14/19 23:45 02:10 09:53 Troponin I 0.091 0.079 0.089 NT-Pro-B Natriuret Pep 6280 H 10/14/19 10/15/19 14:00 06:02 Troponin I 0.075 NT-Pro-B Natriuret Pep 4560 H Impressions: Chest X-Ray 10/13/19 23:19 IMPRESSION: Moderate bibasilar pneumonia/atelectasis. [id number] bilateral pleural effusions. Recommend CR/CT surveillance including at 7-12 weeks following initiation of any clinically warranted therapy. Plan Time Spent: Less than 30 Minutes Stroke Is this a Stroke Patient?: No Acute Heart Failure - Is this a Heart Failure Patient?: Yes Documentation of LVEF assessment?: Yes LVEF: LVEF Less Than or Equal to 35% Anticoagulant Therapy: N/A Discharged on Evidence-Based Beta Blockers: Yes Discharged on ARNI?: Yes Discharged on ARB?: N/A-Discharged on ARNI For LVEF <35%, discharged on Aldosterone Antagonist?: Yes Reason(s) not discharged on Aldosterone Antagonist: Other - Patient's blood pressure cannot tolerate addition of aldosterone antagonist at this time. Aldosterone Antagonist Reason - Other: Patient's blood pressure cannot tolerate addition of aldosterone antagonist Follow-up Appointment scheduled within 7 days?: Yes
[2019-10-16 16:28] VITALS: BP 95/63
== END 2019-10-16 18:35 | disposition home or self-care (01) | DRG 292 ==
LOC: ER 22:56 → EH 10-14 03:38 → 4W 10-14 08:45
PROVIDERS: ADMIT Family Medicine; ATTEND Internal Medicine
PROC: B24BZZZ Ultrasonography of Heart with Aorta (ICD-10-PCS; principal; 2019-10-14)
DX: I50.21 Acute systolic (congestive) heart failure (principal); I42.0 Dilated cardiomyopathy; E11.65 Type 2 diabetes mellitus with hyperglycemia; E78.5 Hyperlipidemia, unspecified; R79.89 Other specified abnormal findings of blood chemistry; R74.0 Nonspecific elevation of levels of transaminase and lactic acid dehydrogenase [LDH]; Z82.49 Family history of ischemic heart disease and other diseases of the circulatory system; Z83.3 Family history of diabetes mellitus; Z79.82 Long term (current) use of aspirin
CPT/HCPCS: 36415; 71046; 80048; 80053; 80061; 80076; 82962; 83036; 83735; 83880; 84484; 85025; 85027; 93005; 93010; 93306; 94799; 96374; 99285; J1644; J1815; J1940; J3490